=== PATIENT | male | born 1955 | race Caucasian/White ===

== ENCOUNTER → 2017-01-15 | Outpatient (CLI) | payer BC | LOC: COL.RAD 08:00 | DX: S73.192A Other sprain of left hip, initial encounter (principal); M94.8X8 Other specified disorders of cartilage, other site; M86.8X8 Other osteomyelitis, other site; M16.0 Bilateral primary osteoarthritis of hip; M70.62 Trochanteric bursitis, left hip | CPT/HCPCS: A9585; J3301; Q9967 ==